=== PATIENT | female | born 1980 | race Caucasian/White ===

== ENCOUNTER 2021-10-12 14:38 | Emergency (ER) | payer OTHER ==
[2021-10-12 15:00] LABS: HEMOGLOBIN 14.3 gm/dl (12.3-15.3); RED BLOOD COUNT 4.86 M/UL (4.00-5.10); WHITE BLOOD COUNT 8.7 K/UL (4.5-11.0)
[2021-10-12 15:24] LABS: BUN/CREATININE RATIO 23 (0-10)
[2021-10-12] MEDS ORDERED: DOXYCYCLINE HY100 MG PO (17:38)
== END 2021-10-12 17:45 | disposition home or self-care (01) ==
LOC: ER1 14:38
PROVIDERS: Emergency Medicine
DX: J18.9 Pneumonia, unspecified organism (principal); R07.89 Other chest pain; F17.210 Nicotine dependence, cigarettes, uncomplicated; Z88.5 Allergy status to narcotic agent
CPT/HCPCS: 71045; 80053; 82550; 82553; 83874; 84484; 85025; 93005; 99285

== ENCOUNTER 2022-02-26 13:26 | Emergency (ER) | payer OTHER ==
[~2022-02-26 13:26] MED LIST: DOXYCYCLINE HY100 MG PO
[2022-02-26 14:04] LABS: HEMOGLOBIN 12.8 gm/dl (12.3-15.3); RED BLOOD COUNT 4.23 M/UL (4.00-5.10); WHITE BLOOD COUNT 10.2 K/UL (4.5-11.0)
[2022-02-26 14:37] LABS: BUN/CREATININE RATIO 22 (0-10)
[2022-02-26] MEDS ORDERED: CEPHALEXIN500 M1 PO (17:25)
[2022-02-26] MEDS ORDERED: PROTONIX40 MG PO (17:25)
== END 2022-02-26 17:35 | disposition home or self-care (01) ==
LOC: ER1 13:26
PROVIDERS: Physician Assistant
DX: K21.9 Gastro-esophageal reflux disease without esophagitis (principal); N39.0 Urinary tract infection, site not specified; R60.0 Localized edema; J45.909 Unspecified asthma, uncomplicated; F17.200 Nicotine dependence, unspecified, uncomplicated; Z90.49 Acquired absence of other specified parts of digestive tract; Z88.0 Allergy status to penicillin
CPT/HCPCS: 71045; 80053; 81001; 82550; 82553; 83690; 84484; 84703; 85025; 87086; 93005; 96374; 99285; C9113